=== PATIENT | female | born 1940 | race Two or more races ===

== ENCOUNTER 2025-05-18 19:08 | Inpatient (IN) | payer OTHER ==
[~2025-05-18] VITALS: Ht 152.4 cm; Wt 44.5 kg
--- NOTE | 2025-05-18 20:19 | ED.PDOC ---
History of Present Illness HPI Comments HPI: Initial Vitals BP: 174/83 HR: 81 RR: 18 O2: 99% Temp: 98.6 F Past Medical History: Unknown Past Surgical History: Pacemaker Social History: Denies ETOH, smoking, and drug use. Medications: Allergies: LAWSEN: GEN WEAK HPI: Poor Historian. 84-year-old female brought in by ambulance from home. Patient is not cooperating in the encounter. Patient denies any pain anywhere in her body. She knows her name. She follows commands. No apparent focal neurological deficits. Patient states that she feels very weak. Per summary report, patient had a fall yesterday and has been weaker today. Patient is unable to give us an y more information at this time. Past Medical History: Past Surgical History: REVIEW OF SYSTEMS: CONSTITUTIONAL: Denies acute: fever, diaphoresis, chills, HEAD: Denies acute: headache, photophobia Eyes: Denies acute: Double vision, vision loss, eye pain, eye discharge. EARS: Denies acute: tinnitus, hearing loss, ear discharge, ear pain, THROAT: Denies acute: sore throat, swelling, difficulty swallowing , pain with swallowing, change in voice. NECK: Denies acute: neck pain, neck swelling, stiff neck. HEART: Denies acute : chest pain, palpitations, LUNGS: Denies acute: SOB, wheezing, cough, hemoptysis ABDOMEN: Denies acute: abdominal pain, Nausea, Vomiting, diarrhea, melena , hematemesis, hematochezia SKIN: Denies acute: rash, redness, lesions, itchiness. EXTREMITIES: Denies acute: calf pain, numbness, tingling, weakness, denies pain in extremity. Denies acute: Low back pain. Neuro: Denies acute: focal neurological deficit, motor or sensory focal neurological deficit, tremors, seizure like activity, confusion, dizziness, change in mental status, loss of bowel or bladder function, cauda equina like symptoms. : Denies acute: dysuria, hematuria, flank pain, increase in urinary frequency. PSYCH: Denies acute: hallucination, suicidal ideation, homicidal ideation. FEMALE: Denies acute: abnormal vaginal bleeding, foul odor, unusual discharge. PHYSICAL EXAM: General: ----mild----acute distress, awake and alert. Head: normocephalic, atraumatic. Neck: supple, trachea is midline, no swelling. Cervical spine: Palpation of the posterior midline of the cervical spine reveals no focal swelling, erythema, focal tenderness to palpation. Patient has normal range of motion. Throat: Normal phonation. Eyes:, no erythema, no purulent discharge, no proptosis, no icterus. Heart: regular rate, regular rhythm, no significant murmur appreciated. Lungs: no apparent respiratory distress, Able to speak in full sentences. No wheezing, no rhonchi, no crackles. No stridors Clear to auscultation bilaterally. Abdomen: non tender to palpation, non distended, soft, no guarding, no rebound, + bowel sounds. Pacemaker noted Neuro: Awake, Alert, oriented to name, self, , follows commands Speech is normal. Skin: no petechia, no purpura, no cyanosis, slight-pale, not jaundice. Lower extremities: --no - Pitting edema no deformity, no focal swelling, no calf TTP. Makes eye contact. moves all four extremities. Face: no apparent facial droop. PERRLA, EOM-I CN 2-12 are grossly intact, No nystagmus. No nuchal rigidity, Kernig's sign, Brudzinski's sign, no meningeal signs. ED COURSE: DISCLAIMER: This medical document was created using an electronic medical record system with voice recognition software and computerized dictation system. Although this document has been carefully reviewed, there might still be some phonetic and typographical errors. Occasional wrong-word or "sound-alike" substitutions may have occurred due to the inherent limitations of voice recognition software. These areas are purely typographical due to imperfections of the software programs and do not reflect any compromise in the patient's medical care. Please read the chart carefully and recognize, using context, where these substitutions have occurred. Chief Complaint: General Weakness Time Seen by MD: 20:18 Reviewed Notes: Allergies Allergies: Coded Allergies: NO KNOWN ALLERGIES (Unverified , 05/18/25) Home Meds Reported Medications Lisinopril (Lisinopril) 40 Mg Tab, 1 TAB PO DAILY, #30 TAB 5 Refills 05/19/25 Information Source: Patient Mode of Arrival: EMS Past Medical History PAST MEDICAL HISTORY: Denies Surgical History: Denies all surgeries Family History Family History: Reviewed,noncontributory to illness Social History Smoker: Non-Smoker Alcohol: Denies ETOH Use Drugs: Denies Drug Use Lives In: Home Was a procedure done? Was a procedure done?: No Differential Dx Considerations may include: Includes but not limited to thyroid disease, encephalopathy, electrolyte abnormality, sepsis, infection, intracranial pathology, drug adverse effects, arrhythmia, kidney insufficiency, ACS, CVA, malignancy, anemia X-Ray, Labs, Meds, VS Vital Signs Date Time Temp Pulse Resp B/P (MAP) Pulse Ox O2 Delivery O2 Flow Rate FiO2 05/18/25 21:58 98.4 66 16 114/38 (63) 95 98.4 05/18/25 19:10 99.0 81 18 174/73 96 99.0 05/18/25 19:08 80 Lab Test 05/18/25 21:00 05/18/25 20:51 05/18/25 20:12 Range/Units Troponin I High Sensitivity 8 5 </=34 ng/L Urine Color Light-yellow Yellow Urine Clarity Clear Clear Urine pH 6.0 5.0-9.0 Urine Specific [place] 1.018 1.001-1.035 Urine Protein Negative Negative Urine Ketones Negative Negative Urine Blood Negative Negative /uL Urine Nitrite Negative Negative Urine Bilirubin Negative Negative Urine Urobilinogen Normal Negative mg/dL Urine Leukocyte Esterase Negative Negative /uL Urine RBC 3 0 - 4 /hpf Urine Microscopic WBC 2 0-5 /HPF Urine Squamous Epithelial Cells Few <5 /hpf Urine Bacteria None seen None Seen /hpf Urine Hyaline Casts Few 0 - 2 /lpf Urine Mucus Few None Seen Urine Glucose Normal Normal mg/dL White Blood Count 8.5 4.4-10.8 10^3/uL Red Blood Count 3.92 L 4.0-5.20 10^6/uL Hemoglobin 12.5 12.2-16.2 g/dL Hematocrit 36.2 36.0-46.0 % Mean Corpuscular Volume 92.2 80.0-100.0 fL Mean Corpuscular Hemoglobin 31.8 28.0-32.0 pg Mean Corpuscular Hemoglobin Concent 34.5 32.0-36.0 g/dL Red Cell Distribution Width 13.3 11.8-14.3 % Platelet Count 103 L 140-450 10^3/uL Mean Platelet Volume 10.6 6.9-10.8 fL Neutrophils (%) (Auto) 85.6 H 37.0-80.0 % Lymphocytes (%) (Auto) 9.0 L 10.0-50.0 % Monocytes (%) (Auto) 4.8 0.0-12.0 % Eosinophils (%) (Auto) 0.4 0.0-7.0 % Basophils (%) (Auto) 0.2 0.0-2.0 % Neutrophils # (Auto) 7.2 1.6-8.6 10 ^3/uL Lymphocytes # (Auto) 0.8 0.4-5.4 10 ^3/uL Monocytes # (Auto) 0.4 0-1.3 10 ^3/uL Eosinophils # (Auto) 0 0-0.8 10 ^3/uL Basophils # (Auto) 0 0-0.2 10 ^3/uL Nucleated Red Blood Cells 0.0 % Sodium Level 137 136-145 mmol/L Potassium Level 3.4 L 3.5-5.1 mmol/L Chloride Level 103 98-107 mmol/L Carbon Dioxide Level 27 20-31 mmol/L Anion Gap 7 5-15 Blood Urea Nitrogen 12 9-23 mg/dL Creatinine 0.68 0.550-1.02 mg/dL Glomerular Filtration Rate Calc 86 >90 mL/min BUN/Creatinine Ratio 17.6 10.0-20.0 Serum Glucose 151 H 74-106 mg/dL Lactic Acid Level 0.8 0.4-2.0 mmol/L Calcium Level 8.5 L 8.7-10.4 mg/dL Total Bilirubin 0.9 0.2-1.0 mg/dL Aspartate Amino Transferase (AST) 29 13-40 U/L Alanine Aminotransferase (ALT) 27 7-40 U/L Alkaline Phosphatase 52 46-116 U/L Total Protein 5.9 5.7-8.2 g/dL Albumin 3.9 3.2-4.8 g/dL [address] [address] Ph: [phone] DIAGNOSTIC IMAGING Diagnostic Imaging Report : [id number] Signed PATIENT: AMA CHANCE ACCT: [id number] UNIT: [id number] : 1940 LOC: ER ROOM / BED: / AGE / SEX: 84 / F ADM STATUS: REG ER SERVICE 43 ORDERING PHYSICIAN: GRACIELA LI DO PROCEDURE(s): CS2 - CERVICAL WITHOUT CONTRAST REASON: gen weak, fall ORDER NUMBER(s): [id number], ACCESSION NUMBER(s): [id number] EXAM: CT CERVICAL WITHOUT CONTRAST INDICATION: gen weak, fall EXAM DATE: 05/18/2025 09:27 PM COMPARISON: None TECHNIQUE: Multiple axial CT images of the cervical spine were obtained using bone algorithm. Axial and coronal reformatting was done. Bone and soft tissue windows were reviewed. Radiation Dose Information: CT Dose: CTDI volume is 8.4 mGy. Dose-length product is 229 mGy*cm FINDINGS: The cervical alignment is intact. No acute cervical spine fracture is identified. The vertebral body heights are intact. No suspicious osseous lesions are identified. Moderate degenerative changes throughout the cervical spine There is no prevertebral soft tissue swelling. IMPRESSION: 1. No evidence of acute cervical spine fracture or traumatic malalignment. 2. Moderate degenerative changes throughout the cervical spine. All CT scans at this medical facility are performed using dose modulation techn iques as appropriate to a performed exam including the following: Automated exposure control was utilized; adjustment of the MA and/or KV according to patient size; and use of iterative reconstruction technique. ATED BY: CRYSTAL GALLEGO MD DICTATED DATE/TIME: 05/18/252199 SIGNED BY: CRYSTAL GALLEGO MD SIGNED DATE/TIME: 05/18/252199 CC: [place] [id number] Ph: [phone] DIAGNOSTIC IMAGING Diagnostic Imaging Report : [id number] Signed PATIENT: AMA CHANCE ACCT: [id number] UNIT: [id number] : 1940 LOC: ER ROOM / BED: / AGE / SEX: 84 / F ADM STATUS: REG ER SERVICE 43 ORDERING PHYSICIAN: GRACIELA LI DO PROCEDURE(s): CXRP - CHEST PORTABLE REASON: gen weak, fall ORDER NUMBER(s): [id number], ACCESSION NUMBER(s): [id number] CHEST RADIOGRAPH Indication: gen weak, fall Technique: Single frontal view of the chest was obtained Comparison: None FINDINGS: Lines and Tubes: None left-sided approach dual lead pacemaker terminating in the right atrium and right ventricle. Lungs: No focal consolidation. Pleura: No effusion. No pneumothorax. Cardiomediastinal contours: Heart size is within normal limits [id number] atherosclerotic calcification and uncoiling of the aorta. Bones: No acute osseous abnormality. IMPRESSION: No acute cardiopulmonary disease. ATED BY: CYNTHIA CARDENAS DO DICTATED DATE/TIME: 05/18/252153 SIGNED BY: CYNTHAI CARDENAS DO SIGNED DATE/TIME: 05/18/252153 CC: [place] [id number] Ph: [phone] DIAGNOSTIC IMAGING Diagnostic Imaging Report : [id number] Signed PATIENT: AMA CHANCE ACCT: [id number] UNIT: [id number] : 1940 LOC: ER ROOM / BED: / AGE / SEX: 84 / F ADM STATUS: REG ER SERVICE 43 ORDERING PHYSICIAN: GRACIELA LI DO PROCEDURE(s): HWOCT - HEAD WITHOUT CONTRAST REASON: maryam perez ORDER NUMBER(s): [id number], ACCESSION NUMBER(s): [id number] EXAM: CT HEAD WITHOUT CONTRAST INDICATION: gen burgos, maryam TECHNIQUE: CT of the head without intravenous contrast. Radiation Dose Information: CT Dose: CTDI volume is 52.53 mGy. Dose-length product is 930.27 mGy*cm The dose indicators for CT are the volume Computed Tomography (CT) Dose Index (CTDIvol) and the Dose Length Product (DLP), and are measured in units of mGy and mGy-cm, respectively. These indicators are not patient dose, but values generated from the CT scanner acquisition factors. The report includes radiation exposure data for exposures received during this examination. COMPARISON: None FINDINGS: There is no evidence of acute intracranial hemorrhage, extra-axial collection, mass effect, midline shift, herniation or hydrocephalus. The ventricles, sulci and cisterns are age appropriate. The grijalva-white differentiation is intact. Patchy periventricular and subcortical white matter hypoattenuation is nonspecific but may be related to small vessel ischemic disease. The visualized paranasal sinuses and mastoid air cells are clear. The surrounding soft tissues and osseous structures are unremarkable. IMPRESSION: 1. No acute intracranial abnormality. ATED BY: PATI SHELL Jr., DO DICTATED DATE/TIME: 05/18/252200 SIGNED BY: PATI SHELL Jr., SIGNED DATE/TIME: 05/18/252200 CC: Time of 1ST Reevaluation: 20:19 Reevaluation 1ST: N/A Patient Education/Counseling: Diagnosis, Treatment Family Education/Counseling: No Family Present Comments MDM: patient presented with the above HPI.----generalized weakness--workup was initiated. patient was found with the above mentioned diagnosis. the following medications were ordered: please refer to order lists of meds and tests obtained by myself Dr. Li. Patient ED course and VS have been stabilized. Patient has been reassessed in the ED and remained in a stable condition. Pertinent incidental findings were discussed with the patient and/or family. Patient/family voices understanding and is agreeable with plan. Patient has been observed in the ED adequate length of time to insure improvement/stability. Escalation of care considered: Consideration of escalation to observation or admission Patient is very weak to get out of the gurney and ambulate. She said that this is not her baseline. Patient was ADMITTED to the medicine team for further evaluation and treatment of their presentation. All the reports of any imaging studies that were ordered by myself were reviewed by myself. SEPSIS Sepsis Screen Date sepsis recognized/suspect: May 18, 2025 Time Sepsis recognized/suspect: 1909 Recent Procedure: No On Antibiotic Therapy: No Respiratory Rate >20: No Heart Rate >90: No Temp<36 C (96.8 F) or >38.3 C: No SBP <90 or MAP <65 mmHG: No New Acute Mental Status Change: No Is the patient on CPAP, BIPAP,: No Physician Orders Weight Loss Physician (05/18/25 ) Chest Portable (05/18/25 19:44) Electrocardigram (05/18/25 19:44) Cervical Without Contrast (05/18/25 19:44) Head Without Contrast (05/18/25 19:44) Vital Signs Date Time Temp Pulse Resp B/P (MAP) Pulse Ox O2 Delivery O2 Flow Rate FiO2 05/18/25 21:58 98.4 66 16 114/38 (63) 95 98.4 05/18/25 19:10 99.0 81 18 174/73 96 99.0 05/18/25 19:08 80 Laboratory Tests Test 05/18/25 20:12 Lactic Acid Level 0.8 mmol/L (0.4-2.0) White Blood Count 8.5 10^3/uL (4.4-10.8) Departure 1 Departure Time of Disposition: 21:27 Impression: Primary Impression: Generalized weakness Additional Impression: Change in mental status Disposition: ADMITTED INPATIENT Admit to: [facility] Condition: Guarded Discharged With: Self Critical Care Note Critical Care Time?: No I personally scribed for GRACIELA LI DO ([email or web address]) on 05/18/25 at 20:19. Electronically submitted by Devin Hollingsworth ([facility]). I personally scribed for GRACIELA LI DO ([email or web address]) on 05/18/25 at 20:21. Electronically submitted by Devin Hollingsworth ([email or web address]). GRACIELA LI DO May 18, 2025 20:19
[2025-05-18 20:28] LABS: Hematocrit 36.2 % (36.0-46.0); Hemoglobin 12.5 g/dL (12.2-16.2); Mean Corpuscular Hemoglobin 31.8 pg (28.0-32.0); Mean Corpuscular Volume 92.2 fL (80.0-100.0); Nucleated Red Blood Cells % 0.0 %
[2025-05-18 20:48] LABS: Alanine Aminotransferase 27 U/L (7-40); Albumin 3.9 g/dL (3.2-4.8); Alkaline Phosphatase 52 U/L (46-116); Anion Gap 7 (5-15); BUN/Creatinine Ratio 17.6 (10.0-20.0); Blood Urea Nitrogen 12 mg/dL (9-23); Carbon Dioxide 27 mmol/L (20-31); Chloride 103 mmol/L (98-107); Sodium 137 mmol/L (136-145); Total Protein 5.9 g/dL (5.7-8.2)
[2025-05-18 20:49] LABS: Bilirubin, Total 0.9 mg/dL (0.2-1.0); Calcium 8.5 mg/dL (8.7-10.4); Glucose 151 mg/dL (74-106); Potassium 3.4 mmol/L (3.5-5.1)
--- NOTE | 2025-05-18 21:56 | DVH ---
CHEST RADIOGRAPH Indication: gen weak, fall Technique: Single frontal view of the chest was obtained Comparison: None FINDINGS: Lines and Tubes: None left-sided approach dual lead pacemaker terminating in the right atrium and rig ht ventricle. Lungs: No focal consolidation. Pleura: No effusion. No pneumothorax. Cardiomediastinal contours: Heart size is within normal limits [id number] atherosclerotic calci fication and uncoiling of the aorta. Bones: No acute osseous abnormality. IMPRESSION: No acute cardiopulmonary disease.
--- NOTE | 2025-05-18 22:03 | DVH ---
EXAM: CT CERVICAL WITHOUT CONTRAST INDICATION: gen weak, fall EXAM DATE: 05/18/2025 09:27 PM COMPARISON: None TECHNIQUE: Multiple axial CT images of the cervical spine were obtained using bone algorithm. Axial a nd coronal reformatting was done. Bone and soft tissue windows were reviewed. Radiation Dose Information: CT Dose: CTDI volume is 8.4 mGy. Dose-length product is 229 mGy*cm FINDINGS: The cervical alignment is intact. No acute cervical spine fracture is identified. The vertebral body heights are intact. No suspicious osseous lesions are identified. Moderate degenerative changes throughout the cervical spine There is no prevertebral soft tissue swelling. IMPRESSION: 1. No evidence of acute cervical spine fracture or traumatic malalignment. 2. Moderate degenerative changes throughout the cervical spine. All CT scans at this medical facility are performed using dose modulation techniques as appropriate t o a performed exam including the following: Automated exposure control was utilized; adjustment of th e MA and/or KV according to patient size; and use of iterative reconstruction technique.
--- NOTE | 2025-05-18 22:03 | DVH ---
EXAM: CT HEAD WITHOUT CONTRAST INDICATION: gen weak, fall TECHNIQUE: CT of the head without intravenous contrast. Radiation Dose Information: CT Dose: CTDI volume is 52.53 mGy. Dose-length product is 930.27 mGy*cm The dose indicators for CT are the volume Computed Tomography (CT) Dose Index (CTDIvol) and the Dose Length Product (DLP), and are measured in units of mGy and mGy-cm, respectively. These indicators are not patient dose, but values generated from the CT scanner acquisition factors. The report includes radiation exposure data for exposures received during this examination. COMPARISON: None FINDINGS: There is no evidence of acute intracranial hemorrhage, extra-axial collection, mass effect, midline s hift, herniation or hydrocephalus. The ventricles, sulci and cisterns are age appropriate. The grijalva-white differentiation is intact. Patchy periventricular and subcortical white matter hypoattenuation is nonspecific but may be related to small vessel ischemic disease. The visualized paranasal sinuses and mastoid air cells are clear. The surrounding soft tissues and osseous structures are unremarkable. IMPRESSION: 1. No acute intracranial abnormality.
[2025-05-19] VITALS (9 sets, daily range): BP systolic 123–160; BP diastolic 57–82; PULSE 50–80; RESP 14–18; TEMP 97.4–98.5; O2SAT 94–97
--- NOTE | 2025-05-19 00:22 | DVHHP2 ---
History of Present Illness Reason for Visit: Generalized weakness History of Present Illness The patient is a 84-year-old female with unknown past medical history presented to [facility] ED for evaluation of altered mental status. Patient is not cooperating, reports weakness, had a fall yesterday due to severe weakness, unable to give any more information at this time. Patient was seen and evaluated in the ED, laboratory data shows WBC 8.5, platelets 103, sodium 137, potassium 3.4, BUN 12, creatinine 0.68, glucose 151, calcium 8.5, troponin 8, blood pressure 114/38, heart rate 66, temperature 98.4 F, O2 saturation 95% on room air. Head CT showed no acute intracranial abnormality; cervical spine CT showed no evidence of acute spine fracture or traumatic malalignment; chest x-ray revealing pacemaker, no acute cardiopulmonary disease. Please see medication orders section in the computer. On my assessment, patient denied chest pain, no headache, no dizziness, no diaphoresis, no shortness of breath, no nausea, no vomiting, no fever, no chills. Patient was admitted for further evaluation and medical management. Past Medical History Hypertension Past Surgical History Pacemaker Family History Reviewed, noncontributory to the management of this case. Past Social History The patient lives at home, denies smoking, alcohol or illicit drugs abuse. Review of Systems Constitutional: Yes: Weakness; No: Fever, Chills, Sweats, Malaise, Other Eyes: No: Pain, Vision change, Conjunctivae inflammation, Eyelid inflammation, Other, Redness ENT: No: Ear pain, Ear discharge, Nose pain, Nose discharge, Nose congestion, Mouth pain, Mouth swelling, Throat pain, Throat swelling, Other Respiratory: No: Cough, Dry, Shortness of breath, SOB with excertion, Wheezing, Hemoptysis, Pleuritic Pain, Sputum, Wheezing, Other Cardiovascular: No: Chest Pain, Palpitations, Orthopnea, Paroxysmal Noc. Dyspnea, Edema, Lt Headedness, Other Gastrointestinal: No: Nausea, Vomiting, Abdominal Pain, Diarrhea, Constipation, Melena, Hematochezia, Other Genitourinary: No Dysuria, No Frequency, No Incontinence, No Hematuria, No Retention, No Other Musculoskeletal: No: other, neck pain, shoulder pain, arm pain, back pain, hand pain, leg pain, foot pain Skin: No: Rash, Lesions, Jaundice, Bruising, Other Neurological: Confusion; No: Weakness, Numbness, Incoordination, Change in speech, Seizures, Other Allergies: Coded Allergies: NO KNOWN ALLERGIES (Unverified , 05/18/25) Medications Current Medications Medications Dose Ordered Sig/Elsa Route Start Time Stop Time Status Last Admin Dose Admin Acetaminophen/ Hydrocodone Bitart 1 tab Q4HP PRN PO 05/19/25 00:30 UNV Exam Vital Signs Vital Signs Date Time Temp Pulse Resp B/P (MAP) Pulse Ox O2 Delivery O2 Flow Rate FiO2 05/18/25 21:58 98.4 66 16 114/38 (63) 95 98.4 General Appearance: Alert, Cooperative, No acute distress, Other (Oriented x2) HEENT: Atraumatic, PERRLA, EOMI, Mucous membr. moist/pink Respiratory: Clear to auscultation, Normal air movement Cardiovascular: Regular rate, Normal S1, Normal S2, No murmurs Abdominal: Normal bowel sounds, Soft, No tenderness, No hepatospenomegaly, No masses Extremities: No clubbing, No cyanosis, No edema, Normal pulses, No tenderness/swelling Skin: No rashes, No significant lesion Neuro: Normal speech, Normal tone, Sensation intact, Cranial nerves 3-12 NL, Reflexes 2+, Other (Generalized weakness) Psych/Mental Status: Mood NL, Other (Altered mental status) Labs/Xrays Labs Test 05/18/25 23:06 05/18/25 20:12 Range/Units White Blood Count 8.5 4.4-10.8 10^3/uL Red Blood Count 3.92 L 4.0-5.20 10^6/uL Hemoglobin 12.5 12.2-16.2 g/dL Hematocrit 36.2 36.0-46.0 % Mean Corpuscular Volume 92.2 80.0-100.0 fL Mean Corpuscular Hemoglobin 31.8 28.0-32.0 pg Mean Corpuscular Hemoglobin Concent 34.5 32.0-36.0 g/dL Red Cell Distribution Width 13.3 11.8-14.3 % Platelet Count 103 L 140-450 10^3/uL Mean Platelet Volume 10.6 6.9-10.8 fL Neutrophils (%) (Auto) 85.6 H 37.0-80.0 % Lymphocytes (%) (Auto) 9.0 L 10.0-50.0 % Monocytes (%) (Auto) 4.8 0.0-12.0 % Eosinophils (%) (Auto) 0.4 0.0-7.0 % Basophils (%) (Auto) 0.2 0.0-2.0 % Neutrophils # (Auto) 7.2 1.6-8.6 10 ^3/uL Lymphocytes # (Auto) 0.8 0.4-5.4 10 ^3/uL Monocytes # (Auto) 0.4 0-1.3 10 ^3/uL Eosinophils # (Auto) 0 0-0.8 10 ^3/uL Basophils # (Auto) 0 0-0.2 10 ^3/uL Nucleated Red Blood Cells 0.0 % Sodium Level 137 136-145 mmol/L Potassium Level 3.4 L 3.5-5.1 mmol/L Chloride Level 103 98-107 mmol/L Carbon Dioxide Level 27 20-31 mmol/L Anion Gap 7 5-15 Blood Urea Nitrogen 12 9-23 mg/dL Creatinine 0.68 0.550-1.02 mg/dL Glomerular Filtration Rate Calc 86 >90 mL/min BUN/Creatinine Ratio 17.6 10.0-20.0 Serum Glucose 151 H 74-106 mg/dL Lactic Acid Level 0.8 0.4-2.0 mmol/L Calcium Level 8.5 L 8.7-10.4 mg/dL Total Bilirubin 0.9 0.2-1.0 mg/dL Aspartate Amino Transferase (AST) 29 13-40 U/L Alanine Aminotransferase (ALT) 27 7-40 U/L Alkaline Phosphatase 52 46-116 U/L Total Protein 5.9 5.7-8.2 g/dL Albumin 3.9 3.2-4.8 g/dL PATIENT: AMA CHANCE ACCT: [id number] UNIT: [id number] : 1940 LOC: ER ROOM / BED: / AGE / SEX: 84 / F ADM STATUS: REG ER SERVICE 43 ORDERING PHYSICIAN: GRACIELA LI DO PROCEDURE(s): HWOCT - HEAD WITHOUT CONTRAST REASON: gen weak, fall ORDER NUMBER(s): [id number], ACCESSION NUMBER(s): [id number] EXAM: CT HEAD WITHOUT CONTRAST INDICATION: gen weak, fall TECHNIQUE: CT of the head without intravenous contrast. Radiation Dose Information: CT Dose: CTDI volume is 52.53 mGy. Dose-length product is 930.27 mGy*cm The dose indicators for CT are the volume Computed Tomography (CT) Dose Index (CTDIvol) and the Dose Length Product (DLP), and are measured in units of mGy and mGy-cm, respectively. These indicators are not patient dose, but values generated from the CT scanner acquisition factors. The report includes radiation exposure data for exposures received during this examination. COMPARISON: None FINDINGS: There is no evidence of acute intracranial hemorrhage, extra-axial collection, mass effect, midline shift, herniation or hydrocephalus. The ventricles, sulci and cisterns are age appropriate. The grijalva-white differentiation is intact. Patchy periventricular and subcortical white matter hypoattenuation is nonspecific but may be related to small vessel ischemic disease. The visualized paranasal sinuses and mastoid air cells are clear. The surrounding soft tissues and osseous structures are unremarkable. IMPRESSION: 1. No acute intracranial abnormality. ORDERING PHYSICIAN: GRACIELA LI DO PROCEDURE(s): CS2 - CERVICAL WITHOUT CONTRAST REASON: gen burgos, fall ORDER NUMBER(s): [id number], ACCESSION NUMBER(s): [id number] EXAM: CT CERVICAL WITHOUT CONTRAST INDICATION: gen burgos, fall EXAM DATE: 05/18/2025 09:27 PM COMPARISON: None TECHNIQUE: Multiple axial CT images of the cervical spine were obtained using bone algorithm. Axial and coronal reformatting was done. Bone and soft tissue windows were reviewed. Radiation Dose Information: CT Dose: CTDI volume is 8.4 mGy. Dose-length product is 229 mGy*cm FINDINGS: The cervical alignment is intact. No acute cervical spine fracture is identified . The vertebral body heights are intact. No suspicious osseous lesions are identified. Moderate degenerative changes throughout the cervical spine There is no prevertebral soft tissue swelling. IMPRESSION: 1. No evidence of acute cervical spine fracture or traumatic malalignment. 2. Moderate degenerative changes throughout the cervical spine. ORDERING PHYSICIAN: GRACIELA LI DO PROCEDURE(s): CXRP - CHEST PORTABLE REASON: gen burgos, fall ORDER NUMBER(s): [id number], ACCESSION NUMBER(s): [id number] CHEST RADIOGRAPH Indication: gen weak, fall Technique: Single frontal view of the chest was obtained Comparison: None FINDINGS: Lines and Tubes: None left-sided approach dual lead pacemaker terminating in the right atrium and right ventricle. Lungs: No focal consolidation. Pleura: No effusion. No pneumothorax. Cardiomediastinal contours: Heart size is within normal limits [id number] atherosclerotic calcification and uncoiling of the aorta. Bones: No acute osseous abnormality. IMPRESSION: No acute cardiopulmonary disease. SEPSIS Sepsis Screen Date sepsis recognized/suspect: May 18, 2025 Time Sepsis recognized/suspect: 1909 Recent Procedure: No On Antibiotic Therapy: No Respiratory Rate >20: No Heart Rate >90: No Temp<36 C (96.8 F) or >38.3 C: No SBP <90 or MAP <65 mmHG: No New Acute Mental Status Change: No Is the patient on CPAP, BIPAP,: No Physician Orders Information Technology Director (05/18/25 ) Urinalysis (05/18/25 19:44) Chest Portable (05/18/25 19:44) Electrocardigram (05/18/25 19:44) Cervical Without Contrast (05/18/25 19:44) Head Without Contrast (05/18/25 19:44) Troponin-I Hs (05/18/25 22:44) Admit (05/19/25 00:17) Allergies (05/19/25 00:17) Code Status (05/19/25 00:17) Oxygen Per Hour (05/19/25 00:17) Hydrocodone-Acet 5/325mg Tab ([place] 5/32 (05/19/25 00:30) Ondansetron Hcl (Zofran) (05/19/25 00:30) Docusate Sodium Capsule (Colace Capsule) (05/19/25 00:30) Fall Risk Precautions In Place QSHIFT (05/19/25 00:17) Complete Blood Count (05/20/25 04:00) Comprehensive Metabolic Panel (05/20/25 04:00) Cardiac Diet-2gna,Lofat,Lochol (05/19/25 Breakfast) Condition: Serious (05/19/25 00:17) Acetaminophen Tablet (Tylenol Tablet) (05/19/25 00:30) Maintain Bed Rest (05/19/25 00:17) Sequential Compression Device (05/19/25 ) Nitroglycerin Sublingual (Ntrostat Subli (05/19/25 00:30) Morphine Sulfate Injection (05/19/25 00:30) Stat Ekg For Chest Pain (05/19/25 00:17) Notify Of Changes From Base (05/19/25 00:17) Jewel Cupping Machine Operator For 24 Hours (05/19/25 00:17) Emergency Dysrhythmia Protocol (05/19/25 00:17) Rhythm Strips Once Every Shift (05/19/25 00:17) Oxygen By Nasal Cannula (05/19/25 00:17) Vital Signs Date Time Temp Pulse Resp B/P (MAP) Pulse Ox O2 Delivery O2 Flow Rate FiO2 05/18/25 21:58 98.4 66 16 114/38 (63) 95 98.4 05/18/25 19:10 99.0 81 18 174/73 96 99.0 05/18/25 19:08 80 Laboratory Tests Test 05/18/25 20:12 Lactic Acid Level 0.8 mmol/L (0.4-2.0) White Blood Count 8.5 10^3/uL (4.4-10.8) Assessment/Plan Assessment/Plan Generalized weakness Hypokalemia Change in mental status Plan 1. Admit to telemetry unit 2. Breathing treatment 3. Pain control management 4. Management of fluids and electrolytes 5. Consultation for hospitalist 6. Diagnostic tests head CT 7. DVT prophylaxis-on aspirin 8. Repeat labs CBC, CMP in a.m. 9. Continue with current medical management 10. Treatment plan discussed with patient and RN. Patient verbalized understanding. Plan discussed with: Patient, Other (RN) My Orders Orders - IMELDA PORTILLO DNP Procedure Category Date Status Time Admit ADMIT 05/19/25 Transmitted 00:17 Allergies ELISABETH 05/19/25 In Process 00:17 Code Status CODE 05/19/25 Transmitted 00:17 Oxygen Per Hour RT 05/19/25 Transmitted 00:17 Hydrocodone-Acet PHA 05/19/25 Transmitted 5/325mg Tab ([place] 00:30 Ondansetron Hcl PHA 05/19/25 Transmitted (Zofran) 00:30 Docusate Sodium PHA 05/19/25 Transmitted Capsule (Colace 00:30 Fall Risk Precautions ELISABETH 05/19/[address] 00:17 Complete Blood Count LAB 05/20/25 Verified 04:00 Comprehensive LAB 05/20/25 Verified Metabolic Panel 04:00 Cardiac DIET 05/19/25 Transmitted Diet-2gna,Lofat,Lochol Breakfast Condition: Serious ELISABETH 05/19/25 In Process 00:17 Acetaminophen Tablet PHA 05/19/25 Transmitted (Tylenol Tablet) 00:30 Maintain Bed Rest ELISABETH 05/19/25 In Process 00:17 Sequential [facility] 05/19/25 In Process Compression Device Nitroglycerin [facility] 05/19/25 Transmitted Sublingual (Ntrostat 00:30 Morphine Sulfate PHA 05/19/25 Transmitted Injection 00:30 Stat Ekg For Chest [facility] 05/19/25 In Process Pain 00:17 Notify Md Of Changes [facility] 05/19/25 In Process From Base 00:17 Jewel Cupping Machine Operator For [facility] 05/19/25 In Process 24 Hours 00:17 Emergency Dysrhythmia [facility] 05/19/25 In Process Protocol 00:17 Rhythm Strips Once [facility] 05/19/25 In Process Every Shift 00:17 Oxygen By Nasal RT 05/19/25 Transmitted Cannula 00:17 Problem List: (1) Generalized weakness (2) Hypokalemia (3) Change in mental status Date of Service: May 19, 2025 Billing Provider: IMELDA PORTILLO DNP Common Visit Codes: [id number] INP/OBS CARE (HIGH) IMELDA PORTILLO DNP May 19, 2025 00:22
[2025-05-19] MEDS ORDERED: NITROGLYCERIN 0.4 MG SL TAB SL PRN (00:30)
[2025-05-19] MEDS ORDERED: ACETAMINOPHEN 325 MG TAB PO PRN (00:30)
[2025-05-19] MEDS ORDERED: DOCUSATE SOD 100 MG CAP PO PRN (00:30)
[2025-05-19] MEDS ORDERED: MORPHINE SULFATE INJ 2 MG/ml SYRG IV PRN (00:30)
[2025-05-19] MEDS: ONDANSETRON HCL 4 MG/2 ML VIAL IV PRN (01:14)
[2025-05-19] MEDS ORDERED: LISI40TA16 PO (03:48)
[2025-05-19 06:06] LABS: Urine Protein, UAD Negative (Negative)
--- NOTE | 2025-05-19 10:38 | DVH ---
CLINICAL INDICATION: POST FALL TECHNIQUE: XY L SHOULDER 2+ VIEW XRAY Comparison: None FINDINGS/IMPRESSION: : There is no evidence of acute fracture or dislocation. Soft tissues are unremarkable.
[2025-05-19] MEDS: POTASSIUM CHL 20 Meq TABLET PO ONE (11:40)
[2025-05-19] MEDS: LACTATED RINGER'S 1,000 ML IV SCH (11:41)
[2025-05-20] VITALS (9 sets, daily range): BP systolic 119–185; BP diastolic 51–76; PULSE 60–78; RESP 14–18; TEMP 36.9; O2SAT 94–99
[2025-05-20 07:16] LABS: Hematocrit 39.1 % (36.0-46.0); Hemoglobin 13.6 g/dL (12.2-16.2); Mean Corpuscular Hemoglobin 32.5 pg (28.0-32.0); Mean Corpuscular Volume 93.0 fL (80.0-100.0); Nucleated Red Blood Cells % 0.1 %
[2025-05-20 07:23] LABS: Alanine Aminotransferase 22 U/L (7-40); Albumin 3.7 g/dL (3.2-4.8); Anion Gap 6 (5-15); BUN/Creatinine Ratio 14.3 (10.0-20.0); Carbon Dioxide 29 mmol/L (20-31); Chloride 106 mmol/L (98-107); Glucose 104 mg/dL (74-106); Potassium 4.2 mmol/L (3.5-5.1); Sodium 141 mmol/L (136-145)
[2025-05-20 07:24] LABS: Bilirubin, Total 0.6 mg/dL (0.2-1.0)
[2025-05-20 07:26] LABS: Alkaline Phosphatase 46 U/L (46-116); Blood Urea Nitrogen 9 mg/dL (9-23); Calcium 8.7 mg/dL (8.7-10.4); Total Protein 5.4 g/dL (5.7-8.2)
[2025-05-20] MEDS: hydrALAZINE HCL 20 MG/ML VL IV PRN (08:57)
[2025-05-20] MEDS: HYDROcodone-ACET 5/325MG TAB PO PRN (10:47)
--- NOTE | 2025-05-20 11:45 | DVHDS2 ---
Discharge Summary Date of Admission May 19, 2025 at 00:17 Date of Discharge: May 20, 2025 Labs/Diagnostic Data: Laboratory Results Test 05/20/25 06:14 05/19/25 01:00 05/18/25 20:51 05/18/25 20:12 White Blood Count 7.1 10^3/uL (4.4-10.8) Red Blood Count 4.20 10^6/uL (4.0-5.20) Hemoglobin 13.6 g/dL (12.2-16.2) Hematocrit 39.1 % (36.0-46.0) Mean Corpuscular Volume 93.0 fL (80.0-100.0) Mean Corpuscular Hemoglobin 32.5 pg (28.0-32.0) Mean Corpuscular Hemoglobin Concent 34.9 g/dL (32.0-36.0) Red Cell Distribution Width 13.6 % (11.8-14.3) Platelet Count 151 10^3/uL (140-450) Mean Platelet Volume 8.7 fL (6.9-10.8) Neutrophils (%) (Auto) 54.1 % (37.0-80.0) Lymphocytes (%) (Auto) 35.0 % (10.0-50.0) Monocytes (%) (Auto) 7.1 % (0.0-12.0) Eosinophils (%) (Auto) 3.3 % (0.0-7.0) Basophils (%) (Auto) 0.5 % (0.0-2.0) Neutrophils # (Auto) 3.8 10 ^3/uL (1.6-8.6) Lymphocytes # (Auto) 2.5 10 ^3/uL (0.4-5.4) Monocytes # (Auto) 0.5 10 ^3/uL (0-1.3) Eosinophils # (Auto) 0.2 10 ^3/uL (0-0.8) Basophils # (Auto) 0 10 ^3/uL (0-0.2) Nucleated Red Blood Cells 0.1 % Sodium Level 141 mmol/L (136-145) Potassium Level 4.2 mmol/L (3.5-5.1) Chloride Level 106 mmol/L (98-107) Carbon Dioxide Level 29 mmol/L (20-31) Anion Gap 6 (5-15) Blood Urea Nitrogen 9 mg/dL (9-23) Creatinine 0.63 mg/dL (0.550-1.02) Glomerular Filtration Rate Calc 88 mL/min (>90) BUN/Creatinine Ratio 14.3 (10.0-20.0) Serum Glucose 104 mg/dL (74-106) Calcium Level 8.7 mg/dL (8.7-10.4) Total Bilirubin 0.6 mg/dL (0.2-1.0) Aspartate Amino Transferase (AST) 24 U/L (13-40) Alanine Aminotransferase (ALT) 22 U/L (7-40) Alkaline Phosphatase 46 U/L (46-116) Total Protein 5.4 g/dL (5.7-8.2) Albumin 3.7 g/dL (3.2-4.8) Troponin I High Sensitivity 7 ng/L (</=34) Urine Color Light-yellow (Yellow) Urine Clarity Clear (Clear) Urine pH 6.0 (5.0-9.0) Urine Specific Brice 1.018 (1.001-1.035) Urine Protein Negative (Negative) Urine Ketones Negative (Negative) Urine Blood Negative /uL (Negative) Urine Nitrite Negative (Negative) Urine Bilirubin Negative (Negative) Urine Urobilinogen Normal mg/dL (Negative) Urine Leukocyte Esterase Negative /uL (Negative) Urine RBC 3 /hpf (0 - 4) Urine Microscopic WBC 2 /HPF (0-5) Urine Squamous Epithelial Cells Few /hpf (<5) Urine Bacteria None seen /hpf (None Seen) Urine Hyaline Casts Few /lpf (0 - 2) Urine Mucus Few (None Seen) Urine Glucose Normal mg/dL (Normal) Lactic Acid Level 0.8 mmol/L (0.4-2.0) Other Laboratory Tests 05/20/25 06:14 Brief Hx & Hospital Course: Patient is an 84-year-old female with past medical history of hypertension who presented after a mechanical fall the day prior to admission. Patient was complaining of generalized weakness. There was report of altered mental status which resolved during her hospitalization. Vitals on admission were within normal limits with the exception of some hypertension. CBC did not reveal any leukocytosis. Hemoglobin was within normal limits. BMP did not show any significant electrolyte abnormalities. CT of the head was done which did not reveal any acute abnormalities. This was followed up with the cervical spine CT which did not show any acute changes. Chest x-ray was normal. UA did not show UTI. Shoulder x-ray was done of the right shoulder due to pain which did not reveal any acute fracture or dislocation. Patient was hydrated with IV fluids throughout her hospitalization. She worked with physical therapy and noted to ambulate 75 feet with the assistance of a walker. Plan of care was discussed with daughter at bedside as well. It was agreed to discharge the patient home with home health with bedside commode, front wheel walker, and shower chair. Review of history showed that patient was having some diarrhea prior to admission and working outside. Her presentation overall was consistent with dehydration with possible heatstroke. Patient discharged in stable condition. Patient to follow-up with her PCP. [facility] case management arrange follow-up appointments. Condition at Discharge: Good Final Diagnosis/Problems List Dehydration Secondary Diagnosis: Hypertension Metabolic Encephalopathy Generalized Weakness Discharge Disposition: Home with Health Services Discharge Instruct/Medications Diet: Cardiac 2g Na,low cholest Activity: No Restrictions, As Tolerated Medications: No new medications. Stay well hydrated. Scheduled Lisinopril (Lisinopril), 1 TAB PO DAILY, (Reported) Discharge Statement: "Patient was advised to return to the ER or call 911 if any headaches, dizziness, shortness of breath, chest pain, abdominal pain, bleeding, fevers, or worsening of medical condition. Patient was counseled about treatment plan, medications, possible side effects, patientverbalized understanding. All questions were answered to the best of my ability. This discharge took greater then 30 minutes in planning, reviewing documentation, counseling the patient, and discussing with other team members." ASSESSMENT ASSESSMENT Assessment Dehydration DION UREÑA DO May 20, 2025 11:45
[2025-05-21 01:00] VITALS: BP 170/70; PULSE 76; RESP 18; TEMP 98.2; O2SAT 96
[2025-05-21 02:35] VITALS: BP 128/63; PULSE 96; RESP 18; TEMP 98.3; O2SAT 98
[2025-05-21 05:00] VITALS: BP 147/81; PULSE 105; RESP 18; TEMP 98.1; O2SAT 96
--- NOTE | 2025-05-21 08:24 | ECG ---
[facility] Test Date: 2025-05-18 Test Time: 19:08:47 Pat Name: AMA CHANCE Department: [facility] ED Patient ID: [facility]-[id number] Room: 0249T B Gender: F Mannequin Molder: MEME : 1940 Requested By: GRACIELA LI Order Number: [id number] Reading MD: Lenny Corona Measurements Intervals [place] Rate: 80 P: 1 VA: 264 QRS: 258 QRSD: 143 T: 86 QT: 422 QTc: 487 Interpretive Statements Atrial-sensed ventricular-paced rhythm No further analysis attempted due to paced rhythm Electronically Signed On 05-22-2025 14:34:35 PDT by Lenny Corona Please click the below link to view image of tracing.
[2025-05-21 08:30] VITALS: PULSE 88
[2025-05-21 09:00] VITALS: BP 111/71; PULSE 94; RESP 18; TEMP 98.9; O2SAT 96
== END 2025-05-21 13:57 | disposition home health service (06) | DRG 922 ==
LOC: EDBD 19:08 → ER 19:08 → OVERFLOW 05-19 00:17 → TELE-EAST 05-19 02:31
PROVIDERS: ATTEND Emergency Medicine
DX: T67.01XA Heatstroke and sunstroke, initial encounter (principal); G93.41 Metabolic encephalopathy; E86.0 Dehydration; I10 Essential (primary) hypertension; E87.6 Hypokalemia; Z95.0 Presence of cardiac pacemaker; X30.XXXA Exposure to excessive natural heat, initial encounter; Z91.09 Other allergy status, other than to drugs and biological substances; Y93.89 Activity, other specified; Y92.89 Other specified places as the place of occurrence of the external cause; Y99.8 Other external cause status
CPT/HCPCS: 36415; 70450; 71045; 72125; 73030; 80053; 81001; 83605; 84484; 85025; 93005; 97116; 97163; 97530; G0378; J2405